=== PATIENT | female | born 1955 | race Caucasian/White ===

== ENCOUNTER 2021-11-11 11:23 | Day surgery (SDC) | payer OTHER ==
[2021-11-10 10:37] LABS: COVID AG,FIA SOURCE NASAL SWAB
[~2021-11-11] VITALS: Ht 154.9 cm; Wt 85.0 kg
[~2021-11-11 11:23] MED LIST: LOSA-382 PO; SODIUM CHLORIDE 0.9% 1,000 ML IV ONE; SODIUM CHLORIDE 0.9% 1,000 ML ONE
[2021-11-11] MEDS ORDERED: PROPOFOL 1% 20 ML VIAL IVP ONE (11:24)
[2021-11-11] MEDS ORDERED: LEVO100 PO (12:02)
[2021-11-11] MEDS ORDERED: ATOR20TA86 PO (12:02)
== END 2021-11-11 15:35 | disposition home or self-care (01) ==
LOC: SURGERY 11:23
PROVIDERS: ATTEND Internal Medicine Gastroenterology
DX: D12.2 Benign neoplasm of ascending colon (principal); D12.5 Benign neoplasm of sigmoid colon; D12.3 Benign neoplasm of transverse colon; K59.09 Other constipation; K57.30 Diverticulosis of large intestine without perforation or abscess without bleeding; K64.0 First degree hemorrhoids; I10 Essential (primary) hypertension; Z79.899 Other long term (current) drug therapy; Z98.890 Other specified postprocedural states
CPT/HCPCS: 45385; 87426; 88305; C9803; J2704; J7030